=== PATIENT | female | born 2000 | race Caucasian/White ===

== ENCOUNTER 2020-11-30 03:28 | Emergency (ER) | payer OTHER ==
[~2020-11-30] VITALS: Ht 167.6 cm; Wt 55.3 kg
[2020-11-30 03:50] VITALS: BP_SYST 118
[2020-11-30] MEDS ORDERED: PHEN-890 PO (04:10)
[2020-11-30] MEDS ORDERED: NITR-85 PO (04:10)
[2020-11-30 04:14] VITALS: BP_SYST 118
[2020-11-30 04:16] LABS: BILIRUBIN,URINE 2+ (NEGATIVE); BLOOD, URINE 3+ (NEGATIVE); CLARITY/URINE CLOUDY (CLEAR); COLOR,URINE BROWN (YELLOW); GLUCOSE,URINE NEGATIVE (NEGATIVE); KETONES,URINE 1+ (NEGATIVE); LEUKOCYTE ESTERASE ,URINE 1+ (NEGATIVE); NITRITE, URINE POSITIVE (NEGATIVE); PH,URINE 6.5 (5.0-8.0); PROTEIN URINE 3+ (NEGATIVE)
[2020-11-30 04:20] LABS: BACTERIA,URINE MODERATE /HPF (None Seen); RBC,URINE >100 /HPF (0-3)
== END 2020-11-30 04:14 | disposition home or self-care (01) ==
LOC: SED 03:28
DX: N39.0 Urinary tract infection, site not specified (principal); Z79.899 Other long term (current) drug therapy
CPT/HCPCS: 81000; 81025; 87086; 99283

== ENCOUNTER 2023-09-09 01:08 | Emergency (ER) | payer OTHER ==
[~2023-09-09] VITALS: Ht 167.6 cm; Wt 55.8 kg
[~2023-09-09 01:08] MED LIST: NITR-85 PO; PHEN-890 PO
[2023-09-09 01:20] VITALS: BP_SYST 124; PULSE 86; RESP 20; TEMP 97.5; O2SAT 97
[2023-09-09] MEDS ORDERED: PHEN-726 PO (01:29)
[2023-09-09 01:31] VITALS: BP_SYST 124; PULSE 86; RESP 20; TEMP 97.5; O2SAT 97
[2023-09-09 02:19] LABS: BILIRUBIN,URINE NEGATIVE (NEGATIVE); BLOOD, URINE 2+ (NEGATIVE); COLOR,URINE YELLOW (YELLOW); GLUCOSE,URINE NEGATIVE (NEGATIVE); KETONES,URINE NEGATIVE (NEGATIVE); LEUKOCYTE ESTERASE ,URINE TRACE (NEGATIVE); NITRITE, URINE NEGATIVE (NEGATIVE); PROTEIN URINE 2+ (NEGATIVE); UROBILINOGEN,URINE 0.2 (0.2-1.0)
[2023-09-09 02:34] LABS: CLARITY/URINE SLIGHTLY CLOUDY (CLEAR)
[2023-09-09 02:35] LABS: RBC,URINE >100 /HPF (0-3)
[2023-09-09 02:37] LABS: BACTERIA,URINE FEW /HPF (None Seen)
== END 2023-09-09 01:32 | disposition home or self-care (01) ==
LOC: SED 01:08
DX: N39.0 Urinary tract infection, site not specified (principal); R31.9 Hematuria, unspecified; Z79.899 Other long term (current) drug therapy
CPT/HCPCS: 81000; 81001; 81015; 87086; 87186; 99283